=== PATIENT | female | born 1955 | race Asian ===

== ENCOUNTER 2023-05-19 09:19 | Emergency (ER) | payer OTHER ==
[~2023-05-19] VITALS: Ht 147.3 cm; Wt 53.5 kg
[2023-05-19] MEDS ORDERED: CEFPODOXIME PR100 MG PO (10:10)
[2023-05-19] MEDS ORDERED: PYRIDIUM100 MG PO (10:11)
[2023-05-19 10:30] VITALS: O2SAT 98
== END 2023-05-19 10:35 | disposition home or self-care (01) ==
LOC: FSED 09:39
DX: R30.0 Dysuria (principal); N39.0 Urinary tract infection, site not specified; R31.9 Hematuria, unspecified
CPT/HCPCS: 81003; 87086; 99282

== ENCOUNTER 2024-01-10 23:42 | Emergency (ER) | payer OTHER ==
[~2024-01-10] VITALS: Ht 154.9 cm; Wt 54.0 kg
[~2024-01-10 23:42] MED LIST: CEFPODOXIME PR100 MG PO; FAMOTIDINE20 MG PO; PYRIDIUM100 MG PO
[2024-01-11 00:12] VITALS: PULSE 83; RESP 18; TEMP 98.3
[2024-01-11] MEDS: SODIUM CHLORIDE 0.9% 1000ML 1,000 ML IV STA (00:35)
[2024-01-11 01:50] VITALS: BP 132/78; PULSE 80; RESP 18; TEMP 98.3; O2SAT 99
== END 2024-01-11 01:50 | disposition home or self-care (01) ==
LOC: FSED 01-11 00:06
DX: R42 Dizziness and giddiness (principal); K21.9 Gastro-esophageal reflux disease without esophagitis; I25.10 Atherosclerotic heart disease of native coronary artery without angina pectoris; E78.5 Hyperlipidemia, unspecified
CPT/HCPCS: 0223U; 70450; 80053; 80307; 81003; 84484; 85025; 93005; 99283; J7030